=== PATIENT | female | born 1970 | race Caucasian/White ===

== ENCOUNTER 2016-10-23 14:07 | Inpatient (IN) | payer OTHER ==
[2016-10-23 17:40] VITALS: BMI 22.5
--- NOTE | 2016-10-23 18:02 | HP ---
CIWA Score - CIWA Score Nausea/Vomitin Muscle Tremors: 3 Anxiety: 3 Agitation: 3 Paroxysmal Sweats: 2 Orientation: 0-Oriented Tacttile Disturbances: 2-Mild Itch/Numbness/Burn Auditory Disturbances: 2-Mild Harshness/Frighten Visual Disturbances: 2-Mild Sensitivity Headache: 2-Mild CIWA-Ar Total Score: 22 Admission ROS BHS - HPI Chief Complaint: i need help to stop drinking alcohol Allergies/Adverse Reactions: Allergies Allergy/AdvReac Type Severity Reaction Status Date / Time Penicillins Allergy Severe Swelling Verified 10/23/16 18:10 History of Present Illness: this 45 years old female with alcohol dependence,seeking help to stop drinking, never been in treatment before seizure syncope nicotine dependence s/p temporal lobectomy right no significant period of sobriety Exam Limitations: No Limitations - Ebola screening Have you traveled outside of the country in the last 21 days: No Have you had contact with anyone from an Ebola affected area: No Have you been sick,other than usual withdrawal symptoms: No Do you have a fever: No - Review of Systems Constitutional: Loss of Appetite, Malaise, Night Sweats, Changes in sleep, Weakness EENT: reports: Nose Congestion Respiratory: reports: No Symptoms reported Cardiac: reports: Palpitations GI: reports: Nausea, Vomiting, Abdominal cramping : reports: No Symptoms Reported Musculoskeletal: reports: Back Pain Integumentary: reports: Dryness Neuro: reports: Headache, Tremors Endocrine: reports: No Symptoms Reported Hematology: reports: No Symptoms Reported Psychiatric: reports: Judgement Intact, Mood/Affect Appropiate, Orientated x3, Anxious, Depressed Patient History - Patient Medical History Hx Anemia: No Hx Asthma: No Hx Chronic Obstructive Pulmonary Disease (COPD): No Hx Cancer: No Hx Cardiac Disorders: No Hx Congestive Heart Failure: No Hx Hypertension: Yes (no medication) Hx Hypercholesterolemia: No Hx Pacemaker: No HX Cerebrovascular Accident: No Hx Seizures: Yes (last 08/16) Hx Dementia: No Hx Diabetes: No Hx Gastrointestinal Disorders: No Hx Liver Disease: No Hx Genitourinary Disorders: No Hx Sexually Transmitted Disorders: No Hx Renal Disease (ESRD): No Hx Thyroid Disease: No Hx Human Immunodeficiency Virus (HIV): No (last 04/18) Hx Hepatitis C: No Hx Depression: Yes (anxiety) Hx Suicide Attempt: Yes (overdose age of 21 years) Hx Bipolar Disorder: No Hx Schizophrenia: No Other Medical History: no suicidal,no homicidal,meningitis at age of 6 mnths - Patient Surgical History Past Surgical History: Yes Hx Neurologic Surgery: Yes (s/p right temporal lobectomy in 2006) - PPD History Previous Implant?: [facility] No PPD to be Administered?: Yes - Reproductive History Patient is a Female of Child Bearing Age (11 -55 yrs old): Yes Patient : No - Smoking Cessation Smoking history: Current every day smoker Have you smoked in the past 12 months: Yes Aproximately how many cigarettes per day: 10 Cigars Per Day: 0 Hx Chewing Tobacco Use: No Initiated information on smoking cessation: Yes 'Breaking Loose' booklet given: 10/23/16 - Substance & Tx. History Hx Alcohol Use: Yes Hx Substance Use: No Substance Use Type: Alcohol Hx Substance Use Treatment: No - Substances Abused Alcohol Route: Oral Frequency: Daily Amount used: 4-5 glasses of wine/ 5 whiskey glasses Age of first use: 13 Date of Last Use: 10/23/16 Family Disease History - Family Disease History Family History: Denies Admission Physical Exam S - Vital Signs Vital Signs: Vital Signs - 24 hr 10/23/16 17:35 Temperature 97.9 F Pulse Rate 83 Respiratory 20 Rate Blood Pressure 169/123 - Physical General Appearance: Yes: Moderate Distress, Tremorous, Irritable, Sweating, Anxious HEENTM: Yes: Hearing grossly Normal, Normal ENT Inspection, OUMAR, Pharynx Normal Respiratory: Yes: Lungs Clear, Normal Breath Sounds, No Respiratory Distress Neck: Yes: Within Normal Limits Breast: Yes: Breast Exam Deferred Cardiology: Yes: Within Normal Limits, Regular Rhythm, Regular Rate, S1, S2 Abdominal: Yes: Within Normal Limits, Non Tender, Flat, Soft Genitourinary: Yes: Within Normal Limits Back: Yes: Muscle Spasm Musculoskeletal: Yes: full range of Motion, Back pain, Muscle Pain Extremities: Yes: Within Normal Limits, Normal Range of Motion, Tremors Neurological: Yes: coding specialist II-XII NML intact, Alert, Motor Strength 5/5 Integumentary: Yes: Dry Lymphatic: Yes: Within Normal Limits - Diagnostic (1) Alcohol dependence with uncomplicated withdrawal Status: Chronic (2) Seizure Status: Suspected (3) Syncope Status: Suspected (4) Nicotine dependence Status: Chronic Qualifiers: Nicotine product type: cigarettes Substance use status: uncomplicated Qualified Code(s): F17.210 - Nicotine dependence, cigarettes, uncomplicated (5) History of brain surgery Status: Acute (6) Essential hypertension Status: Chronic Cleared for Admission [facility] - Detox or Rehab [facility] Level of Care: Medically Managed Detox Regimen/Protocol: Librium S Breath Alcohol Content Breath Alcohol Content: 0 Urine Pregancy Test - Result Urine Test Results: Negative- NO Line Present Urine Drug Screen - Results Drug Screen Negative: No Urine Drug Screen Results: BZO-Benzodiazepines
[2016-10-23] MEDS ORDERED: guaiFENesin/D-METHORPHAN HB 10 ML UNIT-DOSE CUPS PO PRN (18:20)
[2016-10-23] MEDS ORDERED: IBUPROFEN 400 MG TABLET (FP) PO PRN (18:20)
[2016-10-23] MEDS ORDERED: hydrOXYzine PAMOATE 50 MG CAPSULE (FP) PO PRN (18:20)
[2016-10-23] MEDS ORDERED: MENTHOL/PHENOL 1 EACH UD MM PRN (18:20)
[2016-10-23] MEDS ORDERED: P-EPHED 60MG/TRIPROLIDI 2.5MG TABLET PO PRN (18:20)
[2016-10-23] MEDS ORDERED: MAG HYDROX/AL HYDROX/SIMETH 30 ML UNIT-DOSE CUP PO PRN (18:20)
[2016-10-23] MEDS ORDERED: ACETAMINOPHEN 325 MG TABLET (FP) PO PRN (18:20)
[2016-10-23] MEDS ORDERED: LOPERAMIDE HCL 2 MG CAPSULE PO PRN (18:20)
[2016-10-23] MEDS ORDERED: chlordiazePOXIDE HCL 25 MG CAPSULE PO PRN (18:20)
[2016-10-23] MEDS ORDERED: MAGNESIUM CITRATE 300 ML BOTTLE PO PRN (18:20)
[2016-10-23] MEDS ORDERED: MAGNESIUM HYDROX 2400MG/30ML ORAL SUSPENSION 30 ML CUP PO PRN (18:20)
[2016-10-23] MEDS ORDERED: chlordiazePOXIDE HCL 25 MG CAPSULE PO ONE (18:30)
[2016-10-23] MEDS: NICOTINE 21 MG/24 HOURS TOPICAL PATCH TD SCH (20:11)
[2016-10-23] MEDS ORDERED: cloNIDine HCL 0.1 MG TABLET PO ONE (20:18)
[2016-10-23] MEDS: chlordiazePOXIDE HCL 25 MG CAPSULE PO SCH (22:19)
[2016-10-23] MEDS: diphenhydrAMINE HCL 50 MG CAPSULE PO PRN (22:19)
[2016-10-23] MEDS: THIAMINE HCL 100 MG TABLET (FP) PO SCH (22:19)
[2016-10-23 23:24] LABS: URINE APPEARANCE CLEAR; URINE BILIRUBIN NEGATIVE (NEGATIVE); URINE BLOOD 2+ (NEGATIVE); URINE COLOR DKYELLOW; URINE GLUCOSE (UA) NEGATIVE (NEGATIVE); URINE KETONE NEGATIVE (NEGATIVE); URINE LEUK ESTERASE NEGATIVE (NEGATIVE); URINE NITRITE NEGATIVE (NEGATIVE); URINE PROTEIN NEGATIVE (NEGATIVE); URINE UROBILINOGEN NEGATIVE mg/dL (0.2-1.0)
[2016-10-24] MEDS: chlordiazePOXIDE HCL 25 MG CAPSULE PO SCH ×4 (05:20→22:26)
[2016-10-24 10:26] LABS: MCH 36.6 pg (25.7-33.7); MCHC 34.1 g/dl (32.0-36.0); MEAN CELL VOLUME 107.4 fl (80-96); MEAN PLT VOLUME 9.6 fl (7.5-11.1); PLATELET COUNT 159 K/MM3 (134-434); RDW 15.8 % (11.6-15.6); WHITE BLOOD COUNT 5.2 K/mm3 (4.0-10.0)
[2016-10-24] MEDS: PRENATAL VITAMINS W/ FOLIC ACID TABLET (FP) PO SCH (10:45)
[2016-10-24] MEDS: FOLIC ACID 1 MG TABLET (FP) PO SCH (10:45)
[2016-10-24] MEDS: CYANOCOBALAMIN (VITAMIN B-12) 1000 MCG/1 ML VIAL IM SCH (10:45)
[2016-10-24] MEDS: NICOTINE 21 MG/24 HOURS TOPICAL PATCH TD SCH (10:46)
[2016-10-24 10:53] LABS: ALBUMIN 3.3 g/dl (3.4-5.0); ALK PHOS 94 U/L (45-117); ANION GAP 7 (8-16); CALCIUM 9.3 mg/dL (8.5-10.1); CO2 29 mmol/L (21-32); CREATININE 0.8 mg/dL (0.55-1.02); GLUCOSE,RANDOM 84 mg/dL (74-106); SGOT/AST 34 U/L (15-37); SGPT/ALT 31 U/L (12-78); TOT PROT 6.7 g/dl (6.4-8.2)
--- NOTE | 2016-10-24 11:24 | PN ---
S CIWA - CIWA Score Nausea/Vomitin-No Nausea/No Vomiting Muscle Tremors: 4-Moderate,w/Arms Extend Anxiety: 3 Agitation: 4-Moderately Restless Paroxysmal Sweats: 3 Orientation: 0-Oriented Tacttile Disturbances: 0-None Auditory Disturbances: 0-None Visual Disturbances: 0-None Headache: 1-Very Mild CIWA-Ar Total Score: 15 BHS Progress Note (SOAP) Subjective: agitation irritable sweats shakes body aches Objective: 10/24/16 11:23 Vital Signs Temperature 98.4 F 10/24/16 09:52 Pulse Rate 79 10/24/16 09:52 Respiratory Rate 18 10/24/16 09:52 Blood Pressure 135/104 10/24/16 09:52 O2 Sat by Pulse Oximetry (%) Laboratory Tests 10/23/16 10/24/16 10/24/16 23:00 06:30 06:30 WBC 5.2 RBC 4.54 Hgb 16.6 H Hct 48.8 H MCV 107.4 H MCH 36.6 H MCHC 34.1 RDW 15.8 H Plt Count 159 MPV 9.6 Sodium 139 Potassium 4.4 Chloride 103 Carbon Dioxide 29 Anion Gap 7 L BUN 8 Creatinine 0.8 Creat Clearance w eGFR > 60 Random Glucose 84 Calcium 9.3 Total Bilirubin 1.0 AST 34 ALT 31 Alkaline Phosphatase 94 Total Protein 6.7 Albumin 3.3 L Urine Color Dkyellow Urine Appearance Clear Urine pH 5.0 Ur Specific [place] 1.025 Urine Protein Negative Urine Glucose (UA) Negative Urine Ketones Negative Urine Blood 2+ H Urine Nitrite Negative Urine Bilirubin Negative Urine Urobilinogen Negative Ur Leukocyte Esterase Negative awake/alert ambulating no acute distress Assessment: 10/24/16 11:24 withdrawal sx Plan: continue detox increase fluids
--- NOTE | 2016-10-24 11:42 | CONSULT ---
[facility] Psychiatric Consult - Data Date of interview: 10/24/16 Admission source: [facility] Identifying data: This is the first detox. admission for this 45 year old single unemployed female, [facility] [place] [facility] Substance Abuse History: Patient reports started drinking at age of 31, daily drinking wine and wiscky 4-5 glasses , smokes cigaretted 1/2 PPD. This is the first detox. treatment. Medical History: seizure, s/p temporal lobectomy right side. Psychiatric History: Patient denies history of psychiatric treatment, states that she feels very uncomfortable on the unit (too much negativity, people cursing and talking about drugs) and thinking that she might leave this place. Physical/Sexual Abuse/Trauma History: denies Mental Status Exam - Mental Status Exam Alert and Oriented to: Time, Place, Person Cognitive Function: Grossly Intact Patient Appearance: Well Groomed Mood: Anxious Affect: Mood Congruent Patient Behavior: Cooperative Speech Pattern: Clear, Appropriate Thought Process: Goal Oriented Thought Disorder: Not Present Hallucinations: Denies Suicidal Ideation: Denies Homicidal Ideation: Denies Insight/Judgement: Poor Sleep: Fair Appetite: Poor, Weight loss Muscle strength/Tone: Normal Gait/Station: Normal Psychiatric Findings - Problem List ([place] 1, 2,3) (1) Alcohol dependence with uncomplicated withdrawal Current Visit: Yes Status: Acute (2) Nicotine dependence Current Visit: Yes Status: Acute (3) Alcohol-induced anxiety disorder Current Visit: Yes Status: Acute - Initial Treatment Plan Initial Treatment Plan: Supportive therapy has been provided, patient was encouraged to focus on her recovery and recommended to continue her treatment at rehabilitation unit. Continue detox protocol.
[2016-10-24] MEDS ORDERED: BACITRACIN 0.9 GM PACKET TP ONE (17:30)
--- NOTE | 2016-10-24 21:57 | EKG ---
Test Reason : Blood Pressure : / mmHG Vent. Rate : 077 BPM Atrial Rate : 077 BPM P-R Int : 150 ms QRS Dur : 084 ms QT Int : 412 ms P-R-T Axes : 002 073 047 degrees QTc Int : 466 ms NORMAL SINUS RHYTHM NORMAL ECG NO PREVIOUS ECGS AVAILABLE REPEAT EKG IF CLINICALLY INDICATED Confirmed by WINDY EDEN MD ([id number]) on 10/24/2016 9:57:48 PM Referred By: Confirmed By:WINDY EDEN MD
[2016-10-24] MEDS: BACITRACIN 0.9 GM PACKET TP SCH (22:25)
[2016-10-24] MEDS: THIAMINE HCL 100 MG TABLET (FP) PO SCH (22:26)
[2016-10-24] MEDS: diphenhydrAMINE HCL 50 MG CAPSULE PO PRN (22:26)
[2016-10-25] MEDS: chlordiazePOXIDE HCL 25 MG CAPSULE PO SCH ×3 (06:03→17:24)
[2016-10-25] MEDS ORDERED: cloNIDine HCL 0.1 MG TABLET PO PRN (07:26)
[2016-10-25] MEDS: PRENATAL VITAMINS W/ FOLIC ACID TABLET (FP) PO SCH (10:46)
[2016-10-25] MEDS: BACITRACIN 0.9 GM PACKET TP SCH ×2 (10:46→23:08)
[2016-10-25] MEDS: CYANOCOBALAMIN (VITAMIN B-12) 1000 MCG/1 ML VIAL IM SCH (10:46)
[2016-10-25] MEDS: FOLIC ACID 1 MG TABLET (FP) PO SCH (10:47)
[2016-10-25] MEDS: NICOTINE 21 MG/24 HOURS TOPICAL PATCH TD SCH (10:47)
--- NOTE | 2016-10-25 11:06 | PN ---
S CIWA - CIWA Score Nausea/Vomitin-No Nausea/No Vomiting Muscle Tremors: 4-Moderate,w/Arms Extend Anxiety: 3 Agitation: 3 Paroxysmal Sweats: 3 Orientation: 0-Oriented Tacttile Disturbances: 0-None Auditory Disturbances: 0-None Visual Disturbances: 0-None Headache: 0-None Present CIWA-Ar Total Score: 13 S Progress Note (SOAP) Subjective: sweats shakes interrupted sleep anxiety Objective: 10/25/16 11:04 Vital Signs Temperature 99.4 F 10/25/16 10:00 Pulse Rate 73 10/25/16 10:00 Respiratory Rate 16 10/25/16 10:00 Blood Pressure 157/96 10/25/16 10:00 O2 Sat by Pulse Oximetry (%) Laboratory Tests 10/23/16 10/24/16 10/24/16 23:00 06:30 06:30 WBC 5.2 RBC 4.54 Hgb 16.6 H Hct 48.8 H MCV 107.4 H MCH 36.6 H MCHC 34.1 RDW 15.8 H Plt Count 159 MPV 9.6 Sodium 139 Potassium 4.4 Chloride 103 Carbon Dioxide 29 Anion Gap 7 L BUN 8 Creatinine 0.8 Creat Clearance w eGFR > 60 Random Glucose 84 Calcium 9.3 Total Bilirubin 1.0 AST 34 ALT 31 Alkaline Phosphatase 94 Total Protein 6.7 Albumin 3.3 L Urine Color Dkyellow Urine Appearance Clear Urine pH 5.0 Ur Specific [place] 1.025 Urine Protein Negative Urine Glucose (UA) Negative Urine Ketones Negative Urine Blood 2+ H Urine Nitrite Negative Urine Bilirubin Negative Urine Urobilinogen Negative Ur Leukocyte Esterase Negative RPR Titer 10/24/16 06:30 WBC RBC Hgb Hct MCV MCH MCHC RDW Plt Count MPV Sodium Potassium Chloride Carbon Dioxide Anion Gap BUN Creatinine Creat Clearance w eGFR Random Glucose Calcium Total Bilirubin AST ALT Alkaline Phosphatase Total Protein Albumin Urine Color Urine Appearance Urine pH Ur Specific [place] Urine Protein Urine Glucose (UA) Urine Ketones Urine Blood Urine Nitrite Urine Bilirubin Urine Urobilinogen Ur Leukocyte Esterase RPR Titer Nonreactive awake/alert ambulating no acute distress Assessment: 10/25/16 11:29 withdrawal sx Plan: continue detox increase fluids
[2016-10-25] MEDS: THIAMINE HCL 100 MG TABLET (FP) PO SCH (22:18)
[2016-10-25] MEDS: chlordiazePOXIDE 5 MG CAPSULE PO SCH (22:18)
[2016-10-26] MEDS: chlordiazePOXIDE 5 MG CAPSULE PO SCH ×3 (06:18→16:59)
[2016-10-26] MEDS: CYANOCOBALAMIN (VITAMIN B-12) 1000 MCG/1 ML VIAL IM SCH (09:51)
[2016-10-26] MEDS: BACITRACIN 0.9 GM PACKET TP SCH ×2 (09:52→22:09)
[2016-10-26] MEDS: FOLIC ACID 1 MG TABLET (FP) PO SCH (11:08)
[2016-10-26] MEDS: PRENATAL VITAMINS W/ FOLIC ACID TABLET (FP) PO SCH (11:09)
[2016-10-26] MEDS: NICOTINE 21 MG/24 HOURS TOPICAL PATCH TD SCH (11:09)
--- NOTE | 2016-10-26 12:41 | PN ---
BHS Progress Note (SOAP) Subjective: Constipation, Tremors, Interrupted sleep. Objective: PT. A & O X 3. NO ACUTE DISTRESS. PT. DENIES CHEST PAIN. 10/26/16 12:38 Vital Signs Temperature 97.9 F 10/26/16 10:00 Pulse Rate 78 10/26/16 10:00 Respiratory Rate 18 10/26/16 10:00 Blood Pressure 120/92 10/26/16 10:00 O2 Sat by Pulse Oximetry (%) Laboratory Tests 10/23/16 10/24/16 10/24/16 23:00 06:30 06:30 WBC 5.2 RBC 4.54 Hgb 16.6 H Hct 48.8 H MCV 107.4 H MCH 36.6 H MCHC 34.1 RDW 15.8 H Plt Count 159 MPV 9.6 Sodium 139 Potassium 4.4 Chloride 103 Carbon Dioxide 29 Anion Gap 7 L BUN 8 Creatinine 0.8 Creat Clearance w eGFR > 60 Random Glucose 84 Calcium 9.3 Total Bilirubin 1.0 AST 34 ALT 31 Alkaline Phosphatase 94 Total Protein 6.7 Albumin 3.3 L Urine Color Dkyellow Urine Appearance Clear Urine pH 5.0 Ur Specific [place] 1.025 Urine Protein Negative Urine Glucose (UA) Negative Urine Ketones Negative Urine Blood 2+ H Urine Nitrite Negative Urine Bilirubin Negative Urine Urobilinogen Negative Ur Leukocyte Esterase Negative RPR Titer 10/24/16 06:30 WBC RBC Hgb Hct MCV MCH MCHC RDW Plt Count MPV Sodium Potassium Chloride Carbon Dioxide Anion Gap BUN Creatinine Creat Clearance w eGFR Random Glucose Calcium Total Bilirubin AST ALT Alkaline Phosphatase Total Protein Albumin Urine Color Urine Appearance Urine pH Ur Specific [place] Urine Protein Urine Glucose (UA) Urine Ketones Urine Blood Urine Nitrite Urine Bilirubin Urine Urobilinogen Ur Leukocyte Esterase RPR Titer Nonreactive LABS NOTED. Assessment: 10/26/16 12:39 WITHDRAWAL SYMPTOMS. Plan: CONTINUE DETOX. CONTINUE TO MONITOR BP.
[2016-10-26] MEDS: THIAMINE HCL 100 MG TABLET (FP) PO SCH (22:09)
[2016-10-26] MEDS: chlordiazePOXIDE HCL 10 MG CAPSULE PO SCH (22:10)
[2016-10-26] MEDS: diphenhydrAMINE HCL 50 MG CAPSULE PO PRN (22:10)
[2016-10-27] MEDS: chlordiazePOXIDE HCL 10 MG CAPSULE PO SCH ×2 (05:48→10:19)
[2016-10-27] MEDS: PRENATAL VITAMINS W/ FOLIC ACID TABLET (FP) PO SCH (10:19)
[2016-10-27] MEDS: BACITRACIN 0.9 GM PACKET TP SCH (10:19)
[2016-10-27] MEDS: FOLIC ACID 1 MG TABLET (FP) PO SCH (10:19)
[2016-10-27] MEDS: CYANOCOBALAMIN (VITAMIN B-12) 1000 MCG/1 ML VIAL IM SCH (10:24)
--- NOTE | 2016-10-27 10:26 | DS ---
[facility] Detox Discharge Summary Admission Date: 10/23/16 Discharge Date: 10/27/16 - History Present History: Alcohol Dependence - Physical Exam Results Vital Signs: Vital Signs Temperature 98.1 F 10/27/16 07:02 Pulse Rate 71 10/27/16 07:02 Respiratory Rate 18 10/27/16 07:02 Blood Pressure 124/85 10/27/16 07:02 O2 Sat by Pulse Oximetry (%) - Treatment Hospital Course: Detox Protocol Followed, Detoxed Safely, Responded well, Discharged Condition Good, Rehab Referral Accepted - Medication Discharge Medications: Ambulatory Orders Chlordiazepoxide [Librium -] 25 mg PO ONCE PRN 10/23/16 Cyanocobalamin Vit B-12 Inj. [Redisol] 1,000 mcg IJ DAILY 10/23/16 Folic Acid - 1 mg PO DAILY 10/23/16 - Diagnosis (1) Alcohol dependence with uncomplicated withdrawal Current Visit: Yes Status: Chronic (2) Alcohol-induced anxiety disorder Current Visit: Yes Status: Acute (3) Essential hypertension Current Visit: Yes Status: Chronic (4) History of brain surgery Current Visit: Yes Status: Acute (5) History of meningitis Current Visit: No Status: Resolved (6) Nicotine dependence Current Visit: Yes Status: Chronic Qualifiers: Nicotine product type: cigarettes Substance use status: uncomplicated Qualified Code(s): F17.210 - Nicotine dependence, cigarettes, uncomplicated (7) Seizure Current Visit: No Status: Suspected (8) Syncope Current Visit: No Status: Suspected - AMA Did Patient Leave Against Medical Advice: No
[2016-10-27 10:29] VITALS: BP 123/86; PULSE 88; TEMP 98.2
[2016-10-27] MEDS: NICOTINE 21 MG/24 HOURS TOPICAL PATCH TD SCH (11:18)
== END 2016-10-27 10:30 | disposition home or self-care (01) | DRG 775 ==
LOC: YASAS 14:07 → Y6N 18:17
PROVIDERS: ADMIT Internal Medicine; ATTEND Internal Medicine
PROC: HZ2ZZZZ Detoxification Services for Substance Abuse Treatment (ICD-10-PCS; principal; 2016-10-27)
DX: F10.230 Alcohol dependence with withdrawal, uncomplicated (principal); F17.210 Nicotine dependence, cigarettes, uncomplicated; F10.24 Alcohol dependence with alcohol-induced mood disorder; I10 Essential (primary) hypertension; R56.9 Unspecified convulsions
CPT/HCPCS: 36415; 80053; 81003; 81015; 85027; 86593; 93005; 93010